=== PATIENT | male | born 1980 | race Caucasian/White ===

== ENCOUNTER 2016-08-27 12:03 | Emergency (ER) | payer MEDICAID ==
[~2016-08-27] VITALS: Wt 81.0 kg
[2016-08-27] MEDS ORDERED: ACETAMINOPHEN 325 MG TAB PO ONE (14:00)
[2016-08-27 14:20] LABS: ADD SCAN DIFF NO
[2016-08-27 14:23] LABS: BASOPHIL # 0.1 10^3/ul (0.0-0.1); BASOPHILS % 0.7 % (0.0-2.0); EOSINOPHILS # 0.4 10^3/ul (0.0-0.5); EOSINOPHILS % 5.1 % (0.0-7.0); HEMATOCRIT 42.3 % (42.0-52.0); HEMOGLOBIN 13.9 g/dl (14.0-18.0); LYMPHOCYTES # 1.3 10^3/ul (0.8-2.9); LYMPHOCYTES % 18.3 % (15.0-51.0); MEAN CORPUSCULAR HEMOGLOBIN 30.5 pg (29.0-33.0); MEAN CORPUSCULAR HGB CONC 32.9 g/dl (32.0-37.0); MEAN PLATELET VOLUME 8.7 fl (7.4-10.4); MONOCYTE # 0.6 10^3/ul (0.3-0.9); MONOCYTES % 8.6 % (0.0-11.0); NEUTROPHIL # 4.8 10^3/ul (1.6-7.5); NEUTROPHILS % 66.7 % (39.0-77.0); PLATELET COUNT 346 10^3/UL (140-415); RED BLOOD COUNT 4.55 10^6/ul (4.70-6.10); RED CELL DISTRIBUTION WIDTH 14.3 % (11.5-14.5); WHITE BLOOD COUNT 7.2 10^3/ul (4.8-10.8)
[2016-08-27 14:30] LABS: ADD UMIC YES; URINE BILIRUBIN (Dip) NEGATIVE (NEGATIVE); URINE BLOOD (Dip) TRACE (NEGATIVE); URINE COLOR LT. YELLOW (YELLOW); URINE GLUCOSE (Dip) NEGATIVE (NEGATIVE); URINE KETONES (Dip) NEGATIVE (NEGATIVE); URINE LEUKOCYTE ESTERASE (Dip) NEGATIVE (NEGATIVE); URINE NITRITE (Dip) NEGATIVE (NEGATIVE); URINE TOTAL PROTEIN (Dip) NEGATIVE (NEGATIVE); URINE UROBILINOGEN (Dip) 0.2 E.U./dL (0.1-1.0)
[2016-08-27 14:39] LABS: ALBUMIN 4.3 g/dl (3.3-4.9)
[2016-08-27 14:40] LABS: POTASSIUM 3.7 mmol/L (3.5-5.1)
[2016-08-27 14:42] LABS: ALBUMIN/GLOBULIN RATIO 1.3; CREATININE 0.9 mg/dl (0.61-1.24); TOTAL PROTEIN 7.6 g/dl (6.1-8.1)
[2016-08-27 14:43] LABS: CALCIUM 8.5 mg/dl (8.4-10.2)
[2016-08-27 14:44] LABS: BACTERIA,URINE RARE; URINE RBCS 0-2 /HPF (0)
[2016-08-27] MEDS ORDERED: ACET500C5 PO (15:09)
[2016-08-27] MEDS ORDERED: DOCU-144 PO (15:09)
--- NOTE | 2016-08-27 15:12 | ERD ---
ER Documentation Chief Complaint Date/Time DATE: 08/27/16 TIME: 15:11 Chief Complaint ABD PAIN X 4 DAYS HPI This 35-year-old male presents with generalized abdominal discomfort for last 4 days. He is bilateral low back pain as well. Feels best with the urge to urinate but denies dysuria or penile discharge. Denies fevers, vomiting, diarrhea and is having normal bowel movements history. Patient denies any known exposures to STDs or recent new sexual partners ROS All systems reviewed and are negative except as per history of present illness. Medications Home Meds Active Scripts Docusate Sodium* (Colace*) 100 Mg Capsule, 100 MG PO BID, #20 CAP Prov:ANJELICA BEACH MD 08/27/16 Acetaminophen* (Tylophen*) 500 Mg Capsule, 1 CAP PO Q6H Y for PAIN AND OR ELEVATED TEMP, #20 CAP Prov:ANJELICA BEACH MD 08/27/16 PMhx/Soc Medical and Surgical Hx: pt denies Medical Hx, pt denies Surgical Hx Physical Exam Vitals Vital Signs Date Time Temp Pulse Resp B/P Pulse Ox O2 Delivery O2 Flow Rate FiO2 08/27/16 12:06 98.7 74 18 112/69 99 Physical Exam Const: [] Head: Atraumatic Eyes: Normal Conjunctiva ENT: Normal External Ears, Nose and Mouth. Neck: Full range of motion..~ No meningismus. Resp: Clear to auscultation bilaterally Cardio: Regular rate and rhythm, no murmurs Abd: Soft, non tender, non distended. Normal bowel sounds Skin: No petechiae or rashes Back: No midline or flank tenderness Ext: No cyanosis, or edema Neur: Awake and alert Psych: Normal Mood and Affect Result Diagram: 08/27/16 1350 08/27/16 1350 Results 24 hrs Laboratory Tests Test 08/27/16 13:50 08/27/16 14:20 White Blood Count 7.210^3/ul Red Blood Count 4.5510^6/ul Hemoglobin 13.9g/dl Hematocrit 42.3% Mean Corpuscular Volume 93.0fl Mean Corpuscular Hemoglobin 30.5pg Mean Corpuscular Hemoglobin Concent 32.9g/dl Red Cell Distribution Width 14.3% Platelet Count 49174^3/UL Mean Platelet Volume 8.7fl Neutrophils % 66.7% Lymphocytes % 18.3% Monocytes % 8.6% Eosinophils % 5.1% Basophils % 0.7% Nucleated Red Blood Cells % 0.0/100WBC Neutrophils # 4.810^3/ul Lymphocytes # 1.310^3/ul Monocytes # 0.610^3/ul Eosinophils # 0.410^3/ul Basophils # 0.110^3/ul Nucleated Red Blood Cells # 0.010^3/ul Sodium Level 141mmol/L Potassium Level 3.7mmol/L Chloride Level 101mmol/L Carbon Dioxide Level 27mmol/L Anion Gap 17 Blood Urea Nitrogen 7mg/dl Creatinine 0.90mg/dl Glucose Level 90mg/dl Calcium Level 8.5mg/dl Total Bilirubin 0.0mg/dl Direct Bilirubin 0.00mg/dl Indirect Bilirubin 0.0mg/dl Aspartate Amino Transf (AST/SGOT) 40IU/L Alanine Aminotransferase (ALT/SGPT) 51IU/L Alkaline Phosphatase 78IU/L Total Protein 7.6g/dl Albumin 4.3g/dl Globulin 3.30g/dl Albumin/Globulin Ratio 1.30 Lipase 70U/L Urine Color LT. YELLOW Urine Clarity CLEAR Urine pH 6.0 Urine Specific [place] <=1.005 Urine Ketones NEGATIVE Urine Nitrite NEGATIVE Urine Bilirubin NEGATIVE Urine Urobilinogen 0.2 E.U./dL Urine Leukocyte Esterase NEGATIVE Urine Microscopic RBC 0-2/HPF Urine Microscopic WBC NONE SEEN/HPF Urine Epithelial Cells RARE Urine Bacteria RARE Urine Hemoglobin TRACE Urine Glucose NEGATIVE% Urine Total Protein NEGATIVE Current Medications Medications (Trade) Dose Ordered Sig/Estefanía Route PRN Reason Start Time Stop Time Status Last Admin Dose Admin Acetaminophen (Tylenol Tab) 650 mg ONCE ONCE PO 08/27/16 14:00 08/27/16 14:01 DC 08/27/16 14:04 Procedures/MDM CBC and CMP and lipase normal. Urine is negative. Patient was given Tylenol for pain. Patient presents with non-specific upper abdominal pain and low back pain for last 4 days without signs or symptoms to suggest obstruction, appendicitis, hepatobiliary disease, UTI, additional emergent cause of abdominal pain. We treated with course Tylenol and further observation at home. The patient was stable with no new complaints during the ER course. Clinically, there is no current evidence to suggest meningitis, sepsis, acute abdomen, pneumonia, acute coronary syndrome, pulmonary embolism, or any other emergent condition appearing to require further evaluation or hospitalization. The patient should certainly return for any new or worsening symptoms per the aftercare instructions. They should otherwise follow-up with her primary care doctor for reevaluation this week. Departure Diagnosis: Primary Impression: Abdominal pain Abdominal location: upper abdomen, unspecified Qualified Code: R10.10 - Pain of upper abdomen Condition: Stable Patient Instructions: Abdominal Pain Additional Instructions: Examines normal hoy. Cheque otro vez con jordan doctor primario en el proximo gomes or regresa para mas o nueva simptomas- FIEBRE, VOMITO. ANJELICA BEACH MD August 27, 2016 15:12
== END 2016-08-27 15:20 | disposition home or self-care (01) ==
LOC: FTE 12:03
DX: R10.10 Upper abdominal pain, unspecified (principal)
CPT/HCPCS: 80053; 81001; 83690; 85025; Z7502; Z7610; 99283